=== PATIENT | female | born 1955 | race Caucasian/White ===

== ENCOUNTER 2016-08-02 15:32 | Emergency (ER) | payer OTHER ==
[~2016-08-02] VITALS: Ht 162.6 cm; Wt 77.0 kg
[2016-08-02 15:42] VITALS: BP 176/91; PULSE 78; RESP 23; TEMP 98; O2SAT 99
[2016-08-02] MEDS ORDERED: NITROGLYCERIN 0.4 MG SL 25 TABS/BTL SL ONE (16:00)
[2016-08-02] MEDS ORDERED: ASPIRIN 81 MG CHEW TAB CHEW ONE (16:00)
[2016-08-02] MEDS ORDERED: SODIUM CHLORIDE 0.9% FLUSH 10 ML FLUSH IVF PRN (16:00)
--- NOTE | 2016-08-02 16:23 | RADRPT ---
EXAM DATE/TIME: 08/02/2016 16:12 [place] COMPARISON: No previous studies available for comparison. INDICATIONS : Left sided chest/back pain. Patient states chest pain radiates into left arm. MEDICAL HISTORY : None. SURGICAL HISTORY : None. ENCOUNTER: Initial ACUITY: 2 days PAIN SCORE: 8/10 LOCATION: Left chest FINDINGS: A single view of the chest demonstrates the lungs to be symmetrically aerated without evidence of mas s, infiltrate or effusion. The cardiomediastinal contours are unremarkable. Osseous structures are intact. CONCLUSION: No acute disease. Moises Velázquez MD on August 02, 2016 at 16:21 Board Certified Radiologist. This report was verified electronically.
[2016-08-02] MEDS ORDERED: BUPR150CR PO (16:24)
[2016-08-02] MEDS ORDERED: AMBI5TAB PO (16:24)
[2016-08-02] MEDS ORDERED: CALC-187 PO (16:24)
[2016-08-02] MEDS ORDERED: CYAN1TAB24 PO (16:24)
[2016-08-02] MEDS ORDERED: CELE100C PO (16:24)
[2016-08-02] MEDS ORDERED: DEXI30CA2 PO (16:24)
--- NOTE | 2016-08-02 16:36 | PD ---
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 Patient states she initially thought she was having shingles but the pain is been going on for 4 days and gradually worsening and she decided to come in and be seen. Patient does fly quite frequently but states they're all short flights and she' s never had any high blood pressure high cholesterol smoking history or diabetes. She's never had a history of blood clots. She states that occasionally she feels some mild shortness of breath but no nausea no vomiting. She states that she is having some stress secondary to her son just being diagnosed with cancer. PFSH Past Medical History Medical History: Denies Significant Hx Arthritis: Yes Diminished Hearing: No Tetanus Vaccination: < 5 Years Influenza Vaccination: Yes ?: Not Past Surgical History Genitourinary Surgery: Yes (BLADDER ) Hysterectomy: Yes Joint Replacement: Yes (BILATERAL KNEE ) Social History Alcohol Use: Yes (SOCIAL ) Tobacco Use: No Substance Use: No Allergies-Medications (Allergen,Severity, Reaction): Coded Allergies: No Known Allergies (Unverified , 08/02/16) Reported Meds & Prescriptions Reported Meds & Active Scripts Active Prednisone 20 Mg Tab 60 Mg PO DAILY 5 Days Acyclovir 800 Mg Tab 800 Mg PO 5 TIMES A DAY 7 Days Reported B12 (Cyanocobalamin) 1,000 Mcg Tab 1,000 Mg PO DAILY Calcium 500/Vitamin D3 (Calcium Carbonate-Cholecalciferol) 500-400 Mg-Unit Tab 1 Tab PO DAILY Ambien (Zolpidem Tartrate) 5 Mg Tab 5 Mg PO HS PRN Celebrex (Celecoxib) 100 Mg Cap 100 Mg PO DAILY Dexilant (Dexlansoprazole) 30 Mg Cap.dr.bp 30 Mg PO DAILY Wellbutrin SR 12 HR (Bupropion HCl) 150 Mg Tab 150 Mg PO Q12HR Review of Systems Except as stated in HPI: all other systems reviewed are Neg Physical Exam Narrative GENERAL: Developed well-nourished no apparent distress. SKIN: Focused skin assessment warm/dry. HEAD: Atraumatic. Normocephalic. EYES: Pupils equal and round. No scleral icterus. No injection or drainage. ENT: No nasal bleeding or discharge. Mucous membranes pink and moist. NECK: Trachea midline. No JVD. CARDIOVASCULAR: Regular rate and rhythm. No murmur appreciated. 2+ bilaterally equal pulses in all 4 extremity's RESPIRATORY: No accessory muscle use. Clear to auscultation. Breath sounds equal bilaterally. GASTROINTESTINAL: Abdomen soft, non-tender, nondistended. Hepatic and splenic margins not palpable. MUSCULOSKELETAL: No obvious deformities. No clubbing. No cyanosis. No edema. NEUROLOGICAL: Awake and alert. No obvious cranial nerve deficits. Motor grossly within normal limits. Normal speech. PSYCHIATRIC: Appropriate mood and affect; insight and judgment normal. Data Data Last Documented VS Vital Signs Date Time Temp Pulse Resp B/P Pulse Ox O2 Delivery O2 Flow Rate FiO2 08/02/16 18:16 76 20 146/95 99 08/02/16 17:53 Room Air 08/02/16 15:42 98.0 Orders Ckmb (Isoenzyme) Profile (08/02/16 16:00) Complete Blood Count With Diff (08/02/16 16:00) Comprehensive Metabolic Panel (08/02/16 16:00) D-Dimer (08/02/16 16:00) Magnesium (Mg) (08/02/16 16:00) Prothrombin Time / Inr (Pt) (08/02/16 16:00) Act Partial Throm Time (Ptt) (08/02/16 16:00) Troponin I (08/02/16 16:00) Chest, Single Ap (08/02/16 16:00) Ecg Monitoring (08/02/16 16:00) Iv Access Insert/Monitor (08/02/16 16:00) Oximetry (08/02/16 16:00) Oxygen Administration (08/02/16 16:00) Sodium Chloride 0.9% Flush (Ns Flush) (08/02/16 16:00) Aspirin Chew (Aspirin Chew) (08/02/16 16:00) Nitroglycerin Sl (Nitrostat Sl) (08/02/16 16:00) CKMB (08/02/16 16:35) CKMB% (08/02/16 16:35) Electrocardiogram (08/02/16 15:43) Labs Laboratory Tests Test 08/02/16 16:35 White Blood Count 5.3 TH/MM3 Red Blood Count 4.29 MIL/MM3 Hemoglobin 13.0 GM/DL Hematocrit 37.9 % Mean Corpuscular Volume 88.1 FL Mean Corpuscular Hemoglobin 30.3 PG Mean Corpuscular Hemoglobin 34.3 % Concent Red Cell Distribution Width 13.1 % Platelet Count 191 TH/MM3 Mean Platelet Volume 9.4 FL Neutrophils (%) (Auto) 75.7 % Lymphocytes (%) (Auto) 10.9 % Monocytes (%) (Auto) 9.0 % Eosinophils (%) (Auto) 3.7 % Basophils (%) (Auto) 0.7 % Neutrophils # (Auto) 4.0 TH/MM3 Lymphocytes # (Auto) 0.6 TH/MM3 Monocytes # (Auto) 0.5 TH/MM3 Eosinophils # (Auto) 0.2 TH/MM3 Basophils # (Auto) 0.0 TH/MM3 CBC Comment DIFF FINAL Differential Comment Prothrombin Time 10.5 SEC Prothromb Time International 1.0 RATIO Ratio Activated Partial 22.6 SEC Thromboplast Time D-Dimer Quantitative (PE/DVT) 0.28 MG/L FEU Sodium Level 140 MEQ/L Potassium Level 4.0 MEQ/L Chloride Level 106 MEQ/L Carbon Dioxide Level 27.8 MEQ/L Anion Gap 6 MEQ/L Blood Urea Nitrogen 10 MG/DL Creatinine 0.69 MG/DL Estimat Glomerular Filtration 87 ML/MIN Rate Random Glucose 92 MG/DL Calcium Level 8.8 MG/DL Magnesium Level 2.1 MG/DL Total Bilirubin 0.5 MG/DL Aspartate Amino Transf 14 U/L (AST/SGOT) Alanine Aminotransferase 16 U/L (ALT/SGPT) Alkaline Phosphatase 67 U/L Total Creatine Kinase 132 U/L Creatine Kinase MB 1.2 NG/ML Troponin I LESS THAN 0.02 NG/ML Total Protein 6.6 GM/DL Albumin 4.2 GM/DL [facility] Medical Decision Making Medical Screen Exam Complete: Yes Emergency Medical Condition: Yes Interpretation(s) EKG shows normal sinus rhythm with normal axis normal R-wave progression. Nonspecific RSR prime pattern in V1 consistent with a nonspecific intraventricular conduction delay. No obvious ST segment changes. This borderline EKG. Differential Diagnosis ACS, AMI, PE, bronchitis, pneumonia, shingles prodrome seems less likely. Narrative Course Patient was roomed emergency department, she appears well in no obvious distress. She was given aspirin and a dose of nitroglycerin which did not significant alter pain. Initial troponin is negative d-dimer negative. She is low risk as far as her risk factors go, she has a fairly atypical story. I discussed with her the the sclerae behind chest pain workups and why many patients are admitted for stress test and I had recommended that she stay overnight to exclude her chances for ACS/CAD. She states that [place] I stated to her that I was okay with this provided she does admit to quite short term. She verbalized understanding and agreement and wished for discharge. Discussed with her that she is taking some risk of and disability and she verbalized understanding and accepted that risk. She was welcome to return at any time should her symptoms recur. She is concerned that she may have developed shingles and I have written prescription for prednisone and acyclovir and instructed her to take them if she is breaking out in a rash. Discussed that she does break out with a rash needs to stay away from her son until the rash is healed. Diagnosis Primary Impression: Chest pain Qualified Code: R07.9 - Chest pain, unspecified type Additional Instructions: follow-up follow-up with your workers compensation claims analyst this week. Scripts Prednisone 20 Mg Tab60 Mg PO DAILY 5 Days Ref 0 Prov:Moises Townsend MD 08/02/16 Acyclovir 800 Mg [id number] Mg PO 5 TIMES A DAY 7 Days Ref 0 Prov:Moises Townsend MD 08/02/16 Disposition: 01 DISCHARGE HOME Condition: Stable Moises Townsend MD Aug 02, 2016 16:36
[2016-08-02 16:51] LABS: BASOPHIL % 0.7 % (0.0-2.0); EOSINOPHIL # 0.2 TH/MM3 (0-0.4); EOSINOPHIL % 3.7 % (0.0-4.0); HEMATOCRIT 37.9 % (35.0-46.0); HEMO FLAGS DIFF FINAL; LYMPH % 10.9 % (9.0-44.0); LYMPHOCYTE # 0.6 TH/MM3 (1.0-4.8); MEAN CELL VOLUME 88.1 FL (80.0-100.0); MEAN CORPUSCULAR HEMOGLOBIN 30.3 PG (27.0-34.0); MEAN CORPUSCULAR HGB CONC 34.3 % (32.0-36.0); NEUT % 75.7 % (16.0-70.0); PLATELET COUNT 191 TH/MM3 (150-450); RED BLOOD COUNT 4.29 MIL/MM3 (4.00-5.30); RED CELL DISTRIBUTION WIDTH 13.1 % (11.6-17.2); WHITE BLOOD COUNT 5.3 TH/MM3 (4.0-11.0)
[2016-08-02 17:05] LABS: APTT (PATIENT) 22.6 SEC (24.3-30.1); PROTHROMBIN TIME - PATIENT 10.5 SEC (9.8-11.6)
[2016-08-02 17:08] LABS: ALT (GPT) 16 U/L (10-53); ANION GAP 6 MEQ/L (5-15); AST (GOT) 14 U/L (15-37); BICARBONATE 27.8 MEQ/L (21.0-32.0); BLOOD UREA NITROGEN 10 MG/DL (7-18); CHLORIDE 106 MEQ/L (98-107); GLOMERULAR FILTRATION RATE 87 ML/MIN (>89); MAGNESIUM 2.1 MG/DL (1.5-2.5); SODIUM (NA) 140 MEQ/L (136-145)
[2016-08-02 17:12] LABS: ALKALINE PHOSPHATASE 67 U/L (45-117); CREATINE KINASE 132 U/L (26-192); TOTAL BILIRUBIN ADULT 0.5 MG/DL (0.2-1.0)
[2016-08-02 17:26] LABS: CKMB 1.2 NG/ML (0.5-3.6)
[2016-08-02 18:05] VITALS: BP 146/95; PULSE 70; RESP 20; O2SAT 99
[2016-08-02] MEDS ORDERED: ACYC800T PO (18:15)
[2016-08-02] MEDS ORDERED: PRED20 PO (18:15)
[2016-08-02 18:16] VITALS: BP 146/95
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
== END 2016-08-02 18:18 | disposition home or self-care (01) ==
LOC: NEPE 15:32
DX: R07.9 Chest pain, unspecified (principal); R06.02 Shortness of breath; M13.88 Other specified arthritis, other site; Z79.899 Other long term (current) drug therapy
CPT/HCPCS: 71010; 80053; 82550; 82552; 83735; 84484; 85025; 85379; 85610; 85730; 93005; 99285